=== PATIENT | male | born 1945 | race Caucasian/White ===

== ENCOUNTER 2016-09-05 09:30 | Day surgery (SDC) | payer MEDICARE, OTHER ==
[2016-09-05 10:02] VITALS: TEMP 98.1; BMI 29.2
[2016-09-05 12:09] LABS: BASOPHIL 1.1 % (0-2.0); EOSINOPHIL 1.4 % (0-4.5); MCH 29.9 pg (25.7-33.7); MCHC 33.3 g/dl (32.0-35.9); MEAN CELL VOLUME 89.7 fl (80-96); MEAN PLT VOLUME 9.5 fl (7.5-11.1); NEUTROPHILS 60.6 % (42.8-82.8); PLATELET COUNT 160 K/MM3 (134-434); RDW 14.8 % (11.9-15.9); WHITE BLOOD COUNT 5.1 K/mm3 (4.0-10.0)
[2016-09-05 12:21] LABS: ALBUMIN 3.8 g/dl (3.4-5.0); AMYLASE 47 U/L (25-115); ANION GAP 7 (8-16); BILIRUBIN,TOTAL 0.5 mg/dL (0.2-1.0); CALCIUM 8.8 mg/dL (8.5-10.1); CO2 31 mmol/L (21-32); GLUCOSE,RANDOM 89 mg/dL (74-106); SGOT/AST 73 U/L (15-37); SGPT/ALT 116 U/L (12-78); TOT PROT 7.9 g/dl (6.4-8.2)
[2016-09-05 12:22] LABS: INR 1.16 (0.82-1.09); PROTHROMBIN TIME (PATIENT) 12.8 SEC (9.98-11.88)
[2016-09-05 12:24] LABS: ALK PHOS 126 U/L (45-117); FERRITIN 20.873 ng/ml (16.4-293.9)
[2016-09-05 12:39] VITALS: BP 128/72; PULSE 61
[2016-09-06 06:07] LABS: SERUM IRON 104 ug/dL (38-169); TOTAL IRON BINDING CAPACITY 376 ug/dL (250-450); UIBC 272 ug/dL (111-343)
--- NOTE | 2016-09-06 13:39 | PATH ---
Surgical Pathology Report Patient Name: DAVID PEREZ [facility]. Rec. #: [id number] /Age/Gender: 1945 (Age: 70) / M Account: [id number] Location: [facility]-ENDOSCOPY Taken: 09/05/2016 Received: 09/05/2016 Reported: 09/06/2016 Physicians: Jassi Li M.D. Specimen(s) Received A: BX ANTRUM B: BX GASTRIC BODY C: BX DISTAL & MID ESOPHAGUS Clinical History Vomiting, history of gastric metaplasia Hiatal hernia, bile reflux, diffuse gastritis, esophagitis Final Diagnosis A. STOMACH, ANTRUM, BIOPSY: GASTRIC ANTRAL MUCOSA WITH MODERATE CHRONIC GASTRITIS WITH FOCAL INTESTINAL METAPLASIA AND REACTIVE GASTROPATHY. NEGATIVE FOR DYSPLASIA. IMMUNOSTAIN FOR H. PYLORI IS NEGATIVE FOR ORGANISMS. B. STOMACH, BODY, BIOPSY: GASTRIC OXYNTIC MUCOSA WITH MODERATE TO MARKED CHRONIC GASTRITIS WITH EXTENSIVE INTESTINAL METAPLASIA AND ATROPHIC FEATURES. NEGATIVE FOR DYSPLASIA. IMMUNOSTAIN FOR H. PYLORI IS NEGATIVE FOR ORGANISMS. C. ESOPHAGUS, DISTAL AND MID, BIOPSY: SQUAMOUS WITH FOCAL ACTIVE AND CHRONIC INFLAMMATION AND REFLUX TYPE CHANGES. NO COLUMNAR EPITHELIUM PRESENT(NO INTESTINAL METAPLASIA/ENGLAND'S ESOPHAGUS IDENTIFIED). NO EVIDENCE OF EOSINOPHILIC ESOPHAGITIS. NO FUNGAL ORGANISMS IDENTIFIED WITH PAS STAIN. Electronically Signed Kody Mccullough M.D. Gross Description A. Received in formalin, labeled "biopsy antrum" are 6 carrion, irregular portions of soft tissue ranging from 0.2-0.5 cm in greatest dimension. The specimens are submitted in toto in one cassette. B. Received in formalin, labeled "biopsy gastric body" are 3 carrion, irregular portions of soft tissue ranging from 0.2-0.4 cm in greatest dimension. The specimens are submitted in toto in one cassette. C. Received in formalin, labeled "biopsy distal and mid esophagus" are 4 carrion, irregular portions of soft tissue ranging from 0.1-0.4 cm in greatest dimension. The specimens are submitted in toto in one cassette. 09/05/201609/05/2016
[2016-09-07 00:06] LABS: SMOOTH MUSCLE AB 23 Units (0-19)
[2016-09-07 06:06] LABS: HEP B SURFACE AB Non Reactive (.)
[2016-09-07 08:06] LABS: ALPHA 2 MACROGLOBULINS,QN 237 mg/dL (110-276); BILIRUBIN TOTAL 0.4 mg/dL (0.0-1.2); FIBROSIS STAGE F1-F2 (.); GGT= 34 IU/L (0-65); GLUCOSE SERUM 99 mg/dL (65-99); HAPTOGLOBIN= 130 mg/dL (34-200); HEIGHT 67 Inches (.); TRIGLYCERIDES= 203 mg/dL (0-149)
[2016-09-07 14:17] LABS: GASTRIN 60 pg/mL (0-115)
[2016-09-18 14:45] LABS: HBV* HBV DNA NOT DETECTED
== END 2016-09-05 13:05 | disposition home or self-care (01) ==
LOC: JASU-ENDO 09:30
PROVIDERS: ATTEND Internal Medicine Gastroenterology
PROC: 0DB68ZX Excision of Stomach, Via Natural or Artificial Opening Endoscopic, Diagnostic (ICD-10-PCS; 2016-09-05)
PROC: 0DB38ZX Excision of Lower Esophagus, Via Natural or Artificial Opening Endoscopic, Diagnostic (ICD-10-PCS; 2016-09-05)
PROC: 0DB28ZX Excision of Middle Esophagus, Via Natural or Artificial Opening Endoscopic, Diagnostic (ICD-10-PCS; principal; 2016-09-05 10:00)
DX: K21.9 Gastro-esophageal reflux disease without esophagitis (principal); K44.9 Diaphragmatic hernia without obstruction or gangrene; R11.10 Vomiting, unspecified
CPT/HCPCS: 36415; 80053; 82103; 82105; 82150; 82172; 82247; 82390; 82465; 82728; 82941; 82947; 82977; 83010; 83036; 83516; 83540; 83550; 83690; 83883; 84450; 84460; 84478; 85025; 85610; 86038; 86704; 86706; 86708; 87340; 87517; 88305-TC; 88312-TC; 88342-TC

== ENCOUNTER 2017-04-26 06:07 | Day surgery (SDC) | payer MEDICARE, OTHER ==
[2017-04-24 13:28] VITALS: BMI 26.9
[2017-04-26 06:44] LABS: URINE APPEARANCE SLCLOUDY; URINE BILIRUBIN NEGATIVE (NEGATIVE); URINE BLOOD NEGATIVE (NEGATIVE); URINE COLOR YELLOW; URINE GLUCOSE (UA) NEGATIVE (NEGATIVE); URINE KETONE NEGATIVE (NEGATIVE); URINE NITRITE NEGATIVE (NEGATIVE); URINE PROTEIN NEGATIVE (NEGATIVE); URINE UROBILINOGEN NEGATIVE mg/dL (0.2-1.0)
[2017-04-26 06:56] LABS: INR 1.05 (0.82-1.09); PROTHROMBIN TIME (PATIENT) 11.9 SEC (9.98-11.88)
[2017-04-26 06:58] LABS: ACTIVATED PTT 34.3 SECONDS (26.9-34.4)
[2017-04-26] MEDS ORDERED: BUPIVACAINE HCL/PF 0.5% (5MG/ML) 10 ML VIAL ONE (07:49)
[2017-04-26] MEDS ORDERED: MIDAZOLAM HCL 2 MG/2 ML SINGLE DOSE VIAL ONE (07:50)
[2017-04-26] MEDS ORDERED: PROPOFOL 20 ML ONE ×2 (07:50→08:20)
[2017-04-26] MEDS ORDERED: fentaNYL CITRATE 250 MCG/5 ML VIAL ONE (07:50)
[2017-04-26] MEDS ORDERED: ePHEDrine SULFATE 50 MG/1 ML AMPULE ONE (07:51)
[2017-04-26] MEDS ORDERED: ceFAZolin SODIUM 1 GM VIAL ONE (07:51)
[2017-04-26] MEDS ORDERED: SUCCINYLCHOLINE CHLORIDE 200 MG/10 ML VIAL ONE (07:51)
[2017-04-26] MEDS ORDERED: DEXAMETHASONE SOD PHOSPHATE 4 MG/1 ML VIAL ONE (07:51)
[2017-04-26] MEDS ORDERED: CLINDAMYCIN 600 MG PREMIX BAG IVPB ONE ×2 (08:15→08:19)
[2017-04-26] MEDS ORDERED: BUPIVACAINE HCL/PF 0.5% (5MG/ML) 10 ML VIAL IJ ONE ×2 (08:19→08:46)
[2017-04-26] MEDS ORDERED: SEVOFLURANE 250 ML BTL ONE (08:29)
--- NOTE | 2017-04-26 08:55 | HP ---
Satellite [facility] - Chief Complaint Chief Complaint: right knee pain History of Present Illness: right knee medial meniscus tear, OA History Source: Patient Limitations to Obtaining History: No Limitations - Past Medical History Allergies/Adverse Reactions: Allergies Allergy/AdvReac Type Severity Reaction Status Date / Time Penicillins Allergy Unknown Verified 04/24/17 13:32 - Current Medications Current Medications: Home Medications Medication Instructions Recorded Diltiazem HCl [Diltiazem 24Hr ER] 120 mg PO DAILY 07/21/15 Glipizide [Glipizide ER] 5 mg PO DAILY 07/21/15 Lisinopril [Zestril] 5 mg PO DAILY 07/21/15 Omeprazole 20 mg PO DAILY #0 capsule. 09/05/16 Satellite Physical Exam - Physical Examination Vital Signs: Vital Signs Period Temp Pulse Resp BP Sys/Bravo Pulse Ox Last 24 Hr 97.6 F 67 20 118/53 97 General Appearance: Well Nourished ENT: Clear Lung: Clear to auscultation Heart: Regular rate & rhythm Breasts: Soft Abdomen: Soft Extremities: No edema Satellite Impression/Plan - Impression/Plan Impression: right knee medial meniscus tear, OA PF joint Operative Procedure: right knee arthroscopy, partial medial meniscectomy Date to be Performed: 04/26/17
--- NOTE | 2017-04-26 08:56 | OP ---
Operative Note - Note: Operative Date: 04/26/17 Pre-Operative Diagnosis: right knee medial meniscus tear, OA Operation: right knee arthroscopy, partial medial meniscectomy Post-Operative Diagnosis: Same as Pre-op Surgeon: Narayan Napoles Anesthesiologist/HIGH SCHOOL BAND DIRECTOR: Gordon Rosen Anesthesia: General, Local Specimens Removed: shavings Estimated Blood Loss (mls): 0 Drains, Volume Out (mls): 0 Blood Volume Replaced (mls): 0 Fluid Volume Replaced (mls): 500 Operative Report Dictated: Yes
[2017-04-26] MEDS ORDERED: NALOXONE HCL 0.4 MG/ML VIAL ONE (08:57)
[2017-04-26] MEDS ORDERED: ONDANSETRON 4 MG/2 ML VIAL IVPUSH PRN (09:27)
[2017-04-26] MEDS ORDERED: ACETAMINOPHEN 325 MG TABLET (FP) PO PRN (09:27)
[2017-04-26] MEDS ORDERED: LACTATED RINGERS SOLUTION 1,000 ML IV SCH (09:30)
[2017-04-26 10:34] VITALS: TEMP 97.6
--- NOTE | 2017-04-26 11:50 | OP ---
DATE OF OPERATION: 04/26/2017 PREOPERATIVE DIAGNOSIS: Right knee medial meniscus tear and osteoarthritis. POSTOPERATIVE DIAGNOSIS: Right knee medial meniscus tear and osteoarthritis. PROCEDURE: Right knee arthroscopy, partial medial meniscectomy. SURGEON: Narayan Abbott MD ASSISTANTS: Dr. Rosen. ANESTHESIA: LMA, local injection of 20 mL of 0.5% Marcaine. DRAINS: None. COMPLICATIONS: None. SPECIMENS: Arthroscopic shavings. BLOOD LOSS: None. BLOOD GIVEN: None. FLUID REPLACEMENT: 500 mL. INDICATIONS: The patient is a 71-year-old male with preoperative diagnosis of right knee pain, medial meniscus tear, and osteoarthritis. After understanding the potential risks, complications, alternatives, and benefits of surgery versus non-surgical treatment, the patient elected to undergo this procedure. DESCRIPTION OF PROCEDURE: The patient was brought to the operating room. Peripheral IV was placed. Intravenous sedation was given. Clindamycin 60 mg was given. Ample Webril was placed on the right thigh. LMA anesthesia was induced. Tourniquet was applied. Styrofoam ring applied. He was placed into the C-clamp leg knight with ample padding throughout. The right lower extremity was then prepped and draped in sterile fashion, elevated, exsanguinated with an Esmarch bandage, and tourniquet inflated to 275 mmHg. A superomedial outflow portal was established. A lateral portal was established. An arthroscope was introduced in the joint and the medial portal was established under direct visualization using a spinal needle. Diagnostic arthroscopy was performed. The patient was seen to have a complex tear of the posterior horn and body of the medial meniscus. Using combination of the right biting forceps, left biting forceps, and a curved shaver, a partial medial meniscectomy was performed. Photographs were taken before and after. In the medial compartment the patient had grade 1 to almost grade 2 arthritic changes of the medial tibial plateau. The medial femoral condyle only had very mild grade 1 changes and overall looked good. The anterior cruciate ligament looked good. The intracondylar notch looked good. The lateral compartment looked good. The lateral meniscus looked good. There was no osteoarthritis of the lateral femoral condyle or lateral tibial plateau. Next our attention was turned to the patellofemoral joint. The patient did have some debris, which was removed. The patient definitely had some chondromalacia "crab meat" effect of the undersurface of the patella as well as the femoral trochlea and those were grade 2/3 changes. This was definitely the worst area of his osteoarthritis. The area was gently debrided. All debris was removed. Excess saline removed. Arthroscopy equipment removed. Arthroscopy portals closed with 3-0 nylon sutures. The area was then washed and dried. Marcaine 0.5% of 20 mL was introduced into the joint. The incisions were then covered with Xeroform, 4 x 4 gauze, Webril, and Ravin bandage. The tourniquet was taken down with a total tourniquet time of 20 minutes. There were no complications during the case. The patient tolerated the procedure quite well. He was brought to the ambulatory recovery room in stable condition. NARAYAN ABBOTT M.D. [id number]
[2017-04-26 12:08] VITALS: BP 131/77; PULSE 70
[2017-04-26 17:16] LABS: URINE LEUK ESTERASE Negative (NEGATIVE)
--- NOTE | 2017-04-27 14:29 | PATH ---
Surgical Pathology Report Patient Name: DAVID PEREZ [facility]. Rec. #: [id number] /Age/Gender: 1945 (Age: 71) / M Account: [id number] Location: [facility] SURGICAL Taken: 04/26/2017 Received: 04/26/2017 Reported: 04/27/2017 Physicians: Narayan Napoles M.D. Specimen(s) Received RIGHT KNEE SHAVINGS Clinical History Right knee tear Final Diagnosis KNEE SHAVINGS, RIGHT, ARTHROSCOPY: FRAGMENTS OF CARTILAGE, FIBROADIPOSE TISSUE, AND SYNOVIUM. Electronically Signed Alecia Hutchins M.D. Gross Description Received in formalin, labeled "right knee shavings," is a 4.5 x 4.2 x 0.4 cm. aggregate of carrion-yellow soft tissue fragments. A metals sales representative portion is submitted in one cassette. /04/26/201704/26/2017
== END 2017-04-26 11:40 | disposition home or self-care (01) ==
LOC: JASU-SURG 06:07
PROVIDERS: ATTEND Orthopaedic Surgery
PROC: 0SBC4ZZ Excision of Right Knee Joint, Percutaneous Endoscopic Approach (ICD-10-PCS; principal; 2017-04-26 08:00)
DX: S83.231A Complex tear of medial meniscus, current injury, right knee, initial encounter (principal); X58.XXXA Exposure to other specified factors, initial encounter; Y93.9 Activity, unspecified; Y92.9 Unspecified place or not applicable; Y99.9 Unspecified external cause status
CPT/HCPCS: 36415; 81003; 82947; 85610; 85730; 88304-TC; 94760

== ENCOUNTER 2020-08-19 07:47 | Day surgery (SDC) | payer OTHER ==
[2020-08-12 15:03] VITALS: BMI 27.6
[2020-08-19] MEDS ORDERED: MIDAZOLAM HCL 2 MG/2 ML SINGLE DOSE VIAL ONE ×2 (08:50→09:54)
[2020-08-19] MEDS ORDERED: PROPOFOL 20 ML ONE (08:50)
[2020-08-19] MEDS ORDERED: LIDOCAINE HCL 2% (20ML MULTI-DOSE VIAL) ONE (08:56)
[2020-08-19] MEDS ORDERED: BUPIVACAINE HCL/PF 0.25% (2.5MG/ML) 10 ML VIAL ONE (09:29)
[2020-08-19] MEDS ORDERED: BUPIVACAINE HCL/PF 0.25% (2.5MG/ML) 10 ML VIAL STI ONE (10:01)
[2020-08-19] MEDS ORDERED: oxyCODONE HCL 5 MG TABLET PO PRN (10:20)
[2020-08-19] MEDS ORDERED: ONDANSETRON 4 MG/2 ML VIAL IVPUSH PRN (10:20)
[2020-08-19] MEDS ORDERED: LACTATED RINGERS SOLUTION 1,000 ML IV SCH (10:30)
[2020-08-19] MEDS ORDERED: ONDANSETRON 4 MG/2 ML VIAL ONE (10:36)
[2020-08-19 12:18] VITALS: BP 121/67; PULSE 66; TEMP 98
== END 2020-08-19 12:30 | disposition home or self-care (01) ==
LOC: FASU 07:47
PROVIDERS: ATTEND Orthopaedic Surgery Hand Surgery
PROC: 0LN80ZZ Release Left Hand Tendon, Open Approach (ICD-10-PCS; 2020-08-19)
PROC: 0LN80ZZ Release Left Hand Tendon, Open Approach (ICD-10-PCS; 2020-08-19)
PROC: 0LN80ZZ Release Left Hand Tendon, Open Approach (ICD-10-PCS; 2020-08-19)
PROC: 01N50ZZ Release Median Nerve, Open Approach (ICD-10-PCS; principal; 2020-08-19 09:35)
PROC: 0LN80ZZ Release Left Hand Tendon, Open Approach (ICD-10-PCS; 2020-08-19 09:35)
DX: G56.02 Carpal tunnel syndrome, left upper limb (principal); M65.322 Trigger finger, left index finger; M65.332 Trigger finger, left middle finger; M65.342 Trigger finger, left ring finger; M65.352 Trigger finger, left little finger; I10 Essential (primary) hypertension; J45.909 Unspecified asthma, uncomplicated; K21.9 Gastro-esophageal reflux disease without esophagitis; M06.9 Rheumatoid arthritis, unspecified
CPT/HCPCS: 82962; 94760

== ENCOUNTER 2021-10-08 04:43 | Day surgery (SDC) | payer OTHER ==
[2021-10-04 16:26] VITALS: BMI 29.2
[2021-10-08 09:30] VITALS: TEMP 97.8
[2021-10-08 10:09] VITALS: BP 108/77; PULSE 65
== END 2021-10-08 10:59 | disposition home or self-care (01) ==
LOC: JASU-ENDO 04:43
PROVIDERS: ATTEND Internal Medicine Gastroenterology
PROC: 0DB78ZX Excision of Stomach, Pylorus, Via Natural or Artificial Opening Endoscopic, Diagnostic (ICD-10-PCS; 2021-10-08)
PROC: 0DB68ZX Excision of Stomach, Via Natural or Artificial Opening Endoscopic, Diagnostic (ICD-10-PCS; 2021-10-08)
PROC: 0DB28ZX Excision of Middle Esophagus, Via Natural or Artificial Opening Endoscopic, Diagnostic (ICD-10-PCS; 2021-10-08)
PROC: 0DB38ZX Excision of Lower Esophagus, Via Natural or Artificial Opening Endoscopic, Diagnostic (ICD-10-PCS; 2021-10-08)
PROC: 0DB98ZX Excision of Duodenum, Via Natural or Artificial Opening Endoscopic, Diagnostic (ICD-10-PCS; principal; 2021-10-08 09:30)
DX: K31.A11 Gastric intestinal metaplasia without dysplasia, involving the antrum (principal); K29.30 Chronic superficial gastritis without bleeding; K21.00 Gastro-esophageal reflux disease with esophagitis, without bleeding; R13.10 Dysphagia, unspecified; R10.13 Epigastric pain; I10 Essential (primary) hypertension; E11.9 Type 2 diabetes mellitus without complications
CPT/HCPCS: 82962; 88305-TC; 88342-TC

== ENCOUNTER 2023-05-29 04:26 | Day surgery (SDC) | payer OTHER ==
[2023-05-25 15:57] VITALS: BMI 26.9
[2023-05-29 10:44] VITALS: TEMP 99.3
[2023-05-29 11:12] VITALS: PULSE 69
[2023-05-29 11:14] VITALS: BP 103/50; RESP 19
== END 2023-05-29 12:02 | disposition home or self-care (01) ==
LOC: JASU-ENDO 04:26
PROVIDERS: ATTEND Internal Medicine Gastroenterology
PROC: 0DJD8ZZ Inspection of Lower Intestinal Tract, Via Natural or Artificial Opening Endoscopic (ICD-10-PCS; principal; 2023-05-29 10:00)
DX: Z12.11 Encounter for screening for malignant neoplasm of colon (principal); K64.8 Other hemorrhoids; K57.30 Diverticulosis of large intestine without perforation or abscess without bleeding; K63.89 Other specified diseases of intestine; Z86.010 Personal history of colon polyps
CPT/HCPCS: 82962